=== PATIENT | male | born 1990 | race African-American/Black ===

== ENCOUNTER 2017-12-15 11:47 | Emergency (ER) | payer MEDICAID ==
[~2017-12-15] VITALS: Ht 193 cm; Wt 88.0 kg
[2017-12-15 12:02] VITALS: BP 123/70
== END 2017-12-15 18:21 | disposition left against medical advice (07) ==
LOC: ER 11:47
DX: S01.111A Laceration without foreign body of right eyelid and periocular area, initial encounter (principal); Z53.21 Procedure and treatment not carried out due to patient leaving prior to being seen by health care provider; W22.8XXA Striking against or struck by other objects, initial encounter; Y93.67 Activity, basketball; Y92.89 Other specified places as the place of occurrence of the external cause; Y99.8 Other external cause status

== ENCOUNTER 2020-08-26 20:42 | Emergency (ER) | payer MEDICAID ==
[~2020-08-26] VITALS: Ht 193 cm; Wt 91.0 kg
[2020-08-27] MEDS ORDERED: KETOROLAC 30MG/ML VIAL IM ONE
[2020-08-27] MEDS ORDERED: IBUP-2029 MT (00:34)
[2020-08-27 00:56] VITALS: BP 121/59
== END 2020-08-27 01:03 | disposition home or self-care (01) ==
LOC: ER 21:50
DX: M25.512 Pain in left shoulder (principal); F12.10 Cannabis abuse, uncomplicated; Z88.0 Allergy status to penicillin; X58.XXXA Exposure to other specified factors, initial encounter; Y93.64 Activity, baseball; Y92.89 Other specified places as the place of occurrence of the external cause
CPT/HCPCS: 73030; 96372; 99283; J1885; A4565

== ENCOUNTER 2021-01-14 18:41 | Emergency (ER) | payer MEDICAID ==
[~2021-01-14] VITALS: Ht 188 cm; Wt 90.0 kg
[~2021-01-14 18:41] MED LIST: IBUP-2029 MT
[2021-01-14] MEDS ORDERED: HYDROCODONE/ACETAMINOPHEN 5/325MG TABLET PO STA (21:16)
[2021-01-14] MEDS ORDERED: TETANUS, DIPHTHERIA, PERTUSSIS VAC/PF 0.5ML (>10YR OLD) IM ONE (21:30)
[2021-01-14 22:02] VITALS: BP 121/84
[2021-01-14] MEDS ORDERED: IBUP-2029 MT (23:07)
[2021-01-14] MEDS ORDERED: LORA-249 MT (23:08)
== END 2021-01-14 23:15 | disposition home or self-care (01) ==
LOC: ER 18:41
DX: S06.0X9A Concussion with loss of consciousness of unspecified duration, initial encounter (principal); S60.512A Abrasion of left hand, initial encounter; M54.2 Cervicalgia; M25.532 Pain in left wrist; F12.10 Cannabis abuse, uncomplicated; Z88.0 Allergy status to penicillin; V43.52XA Car driver injured in collision with other type car in traffic accident, initial encounter; Y93.89 Activity, other specified; Y92.488 Other paved roadways as the place of occurrence of the external cause
CPT/HCPCS: 71045; 73130; 90715; 99284

== ENCOUNTER 2022-11-03 15:20 | Emergency (ER) | payer MEDICAID ==
[~2022-11-03] VITALS: Ht 193 cm; Wt 93.0 kg
[~2022-11-03 15:20] MED LIST changes: +LORA-249 MT
[2022-11-03 15:44] VITALS: BP 119/75; PULSE 75; RESP 18; TEMP 98.5; O2SAT 99
[2022-11-03] MEDS ORDERED: IBUPROFEN 400MG TABLET PO ONE (18:15)
[2022-11-03] MEDS ORDERED: IBUP-2028 MT (18:25)
== END 2022-11-03 19:04 | disposition home or self-care (01) ==
LOC: ER 15:20
DX: S46.212A Strain of muscle, fascia and tendon of other parts of biceps, left arm, initial encounter (principal); I10 Essential (primary) hypertension; F12.90 Cannabis use, unspecified, uncomplicated; Z88.8 Allergy status to other drugs, medicaments and biological substances; W18.39XA Other fall on same level, initial encounter; Y93.B9 Activity, other involving muscle strengthening exercises; Y92.89 Other specified places as the place of occurrence of the external cause; Y99.8 Other external cause status
CPT/HCPCS: 99282

== ENCOUNTER 2022-12-15 21:13 | Emergency (ER) | payer MEDICAID, OTHER ==
[~2022-12-15] VITALS: Ht 188 cm; Wt 82.0 kg
[~2022-12-15 21:13] MED LIST changes: +IBUP-2028 MT
[2022-12-15 21:17] VITALS: BP 112/75; PULSE 100; RESP 18; TEMP 98.8; O2SAT 99
== END 2022-12-16 01:16 | disposition left against medical advice (07) ==
LOC: ER 21:13
DX: F41.9 Anxiety disorder, unspecified (principal); Z53.21 Procedure and treatment not carried out due to patient leaving prior to being seen by health care provider
CPT/HCPCS: 99281